=== PATIENT | female | born 1995 | race Caucasian/White ===

== ENCOUNTER 2019-01-30 20:22 | Emergency (ER) | payer MEDICAID ==
[~2019-01-30] VITALS: Ht 152.4 cm; Wt 63.5 kg
[2019-01-30 20:27] VITALS: BP 139/87
--- NOTE | 2019-01-30 22:26 | NUR ---
PATIENT CALLED TO BE ON BED NO RESPONSE.PATIENT LEFT WITHOUT BEING SEEN BY DR. SAMANIEGO. NO FURTHER CARE PROVIDED FOR PATIENT.
--- NOTE | 2019-01-30 22:30 | NUR ---
CALLED FOR PT IN THE LOBBY AND OUTSIDE, PT DID NOT RESPOND.
--- NOTE | 2019-01-30 22:35 | NUR ---
PATIENT CALLED FOR THE THIRD TIME NO RESPONSE.
== END 2019-01-30 22:26 | disposition left against medical advice (07) ==
LOC: MED 20:22
DX: R06.00 Dyspnea, unspecified (principal); Z53.21 Procedure and treatment not carried out due to patient leaving prior to being seen by health care provider